=== PATIENT | male | born 1955 | race Hispanic/Latino ===

== ENCOUNTER 2017-11-09 06:50 | Inpatient (IN) | payer MEDICAID ==
[~2017-11-09] VITALS: Ht 180.3 cm; Wt 132.4 kg
[~2017-11-09 06:50] MED LIST: ASPI-1181 PO; ATOR20TA65 PO; CILO100T PO; CLON0.1T PO; CLOP75TA32 PO; IRON-23 PO; LEVO5TAB13 PO; OMEP20CA10 PO; PREG150C PO; SAXA1TBM2 PO; SERT50TA12 PO; TAMS0.4C32 PO
[2017-11-09 08:18] LABS: BASOPHILS % (AUTO) 0.9 % (0.0-5.0); EOSINOPHILS % (AUTO) 3.2 % (0.0-8.0); HEMATOCRIT 37.8 % (42-54); LYMPHOCYTES % (AUTO) 6.9 % (21.0-51.0); MEAN CORPUSCULAR HEMOGLOBIN 29.5 pg (27.0-33.0); MEAN CORPUSCULAR HGB CONC 32.9 g/dL (32.0-36.0); MEAN CORPUSCULAR VOLUME 89.7 fL (79-99); MONOCYTES % (AUTO) 5.3 % (3.0-13.0); NEUTROPHILS % (AUTO) 83.7 % (40.0-77.0); PLATELET COUNT (AUTO) 319 K/uL (130-400); RED BLOOD CELL COUNT(AUTO) 4.22 MIL/uL (4.50-6.20); RED CELL DISTRIBUTION WIDTH 16.7 % (11.0-15.5); WHITE BLOOD COUNT (AUTO) 8.1 K/uL (4.8-10.8)
[2017-11-09] MEDS ORDERED: VANCOMYCIN 1GM+NS 250ML 250 ML IV ONE (08:28)
[2017-11-09 08:30] LABS: CREATININE 2.5 mg/dL (0.5-1.5); POTASSIUM 4.6 mmol/L (3.5-5.1)
[2017-11-09 08:36] LABS: ALBUMIN 2.8 g/dL (3.5-5.0); BILIRUBIN,TOTAL 0.6 mg/dL (0.2-1.0); TOTAL PROTEIN, SERUM 8.3 g/dL (6.0-8.3)
[2017-11-09 08:45] LABS: INR 1.1 (0.85-1.15); PARTIAL THROMBOPLASTIN TIME 30.8 SEC (26.3-35.5); PROTHROMBIN TIME 11.5 SEC (9.6-11.6)
[2017-11-09 09:34] LABS: ERYTHROCYTE SEDIMENTATION RATE 77 MM/HR (0-15)
[2017-11-09] MEDS ORDERED: GUAIFENESIN-DM 200/20 MG 10 ML PO PRN (09:45)
[2017-11-09] MEDS ORDERED: ONDANSETRON HCL 4 MG/2 ML VIAL IV PRN (09:45)
[2017-11-09] MEDS ORDERED: ACETAMINOPHEN-CODEINE 300/30MG TAB PO PRN ×2 (09:45)
[2017-11-09] MEDS ORDERED: MAG HYDROX/AL HYDROX/SIMETH ES 30 ML SUSP UDCUP PO PRN (09:45)
[2017-11-09] MEDS ORDERED: CLINDAMYCIN 600 MG/D5% WATER 50 ML IV SCH (09:45)
[2017-11-09] MEDS ORDERED: NITROGLYCERIN 0.4 MG SL TAB SL PRN (09:45)
[2017-11-09] MEDS ORDERED: CEFTRIAXONE 1GM/D5W 50ML 50 ML IV SCH (09:45)
[2017-11-09] MEDS ORDERED: MORPHINE SULFATE 2 MG/ML 1ML SYG IV PRN (09:45)
[2017-11-09] MEDS ORDERED: HYDRALAZINE HCL 20 MG/ML VIAL IV PRN (09:45)
[2017-11-09] MEDS ORDERED: LACTULOSE 20 GM/30 ML UDCUP PO PRN (09:45)
[2017-11-09] MEDS ORDERED: ACETAMINOPHEN 325 MG TAB PO PRN ×2 (09:45)
[2017-11-09 10:31] LABS: APPEARANCE,URINE CLEAR (CLEAR); BILIRUBIN,URINE NEGATIVE (NEGATIVE); COLOR,URINE YELLOW (YELLOW); GLUCOSE, URINE (UA) NEGATIVE (NEGATIVE); KETONES,URINE NEGATIVE (NEGATIVE); LEUKOCYTE ESTERASE ,URINE SMALL (NEGATIVE); NITRATE,URINE NEGATIVE (NEGATIVE); OCCULT BLOOD,URINE SMALL (NEGATIVE); PH,URINE 5.5 (5.0-8.0); PROTEIN,URINE 100 (NEGATIVE); UROBILINOGEN,URINE 0.2 mg/dL (0.2-1.0)
[2017-11-09 10:37] LABS: BACTERIA,URINE Few /HPF (None Seen)
[2017-11-09 10:38] LABS: RBC,URINE 0-1 /HPF (0-1); SQUAMOUS EPITHELIAL CELL,UR 0-2 /LPF (0-2); YEAST,URINE BUDDING Many /HPF (None Seen)
[2017-11-09 12:59] VITALS: BP 142/71
[2017-11-09] MEDS ORDERED: SODIUM CHLORIDE 0.9% 1000ML 1,000 ML IV SCH (14:43)
[2017-11-09 16:00] VITALS: BP 146/75
[2017-11-09] MEDS: INSULIN HUMULIN R 100 UNIT/ML 3ML SQ SCH ×2 (16:30→21:00)
[2017-11-09] MEDS: MORPHINE SULFATE 4 MG/1ML SYG IV PRN (16:41)
[2017-11-09] MEDS: CEFTRIAXONE SODIUM 1 GM IVP SCH (16:41)
[2017-11-09 20:00] VITALS: BP 124/74
[2017-11-09] MEDS: FAMOTIDINE/PF 20 MG/2 ML VIAL IV SCH (23:06)
[2017-11-09] MEDS: NYSTATIN 30 GM CREAM.GM. TP SCH (23:06)
[2017-11-09] MEDS: ATORVASTATIN CALCIUM 20 MG TABLET PO SCH (23:06)
[2017-11-09] MEDS: INSULIN GLARGINE 100 UNITS/ML 10 ML VIAL SQ SCH (23:11)
[2017-11-10] VITALS: BP 145/68
[2017-11-10] MEDS: ACETYLCYSTEINE 10% 100MG/ML 4ML VIAL PO SCH ×2 (02:45→20:46)
[2017-11-10 03:36] LABS: HEMATOCRIT 33.4 % (42-54); MEAN CORPUSCULAR HGB CONC 32.7 g/dL (32.0-36.0); MEAN CORPUSCULAR VOLUME 88.5 fL (79-99); PLATELET COUNT (AUTO) 258 K/uL (130-400); RED BLOOD CELL COUNT(AUTO) 3.77 MIL/uL (4.50-6.20); RED CELL DISTRIBUTION WIDTH 16.3 % (11.0-15.5); WHITE BLOOD COUNT (AUTO) 6.1 K/uL (4.8-10.8)
[2017-11-10 03:52] LABS: CREATININE 2.2 mg/dL (0.5-1.5); POTASSIUM 4.7 mmol/L (3.5-5.1)
[2017-11-10 04:00] VITALS: BP 117/61
[2017-11-10] MEDS ORDERED: ATOR20TA PO (04:52)
[2017-11-10] MEDS ORDERED: OMEP40CA37 PO (04:52)
[2017-11-10] MEDS ORDERED: LOSA25TA21 PO (04:52)
[2017-11-10] MEDS ORDERED: PREG150C PO (04:52)
[2017-11-10 07:00] VITALS: BP 128/64
[2017-11-10] MEDS: INSULIN HUMULIN R 100 UNIT/ML 3ML SQ SCH ×4 (07:30→20:53)
[2017-11-10] MEDS: MORPHINE SULFATE 4 MG/1ML SYG IV PRN (08:05)
[2017-11-10] MEDS: CLOPIDOGREL BISULFATE 75 MG TAB PO SCH (09:00)
[2017-11-10] MEDS: ENOXAPARIN SODIUM 40 MG/0.4 ML SYRINGE SQ SCH (09:00)
[2017-11-10] MEDS: FAMOTIDINE/PF 20 MG/2 ML VIAL IV SCH ×2 (09:00→20:48)
[2017-11-10] MEDS: CILOSTAZOL 100 MG TAB PO SCH ×2 (09:00→20:47)
[2017-11-10] MEDS: CLONIDINE HCL 0.1 MG TABLET PO SCH ×2 (09:00→20:47)
[2017-11-10] MEDS: ASPIRIN 81 MG EC TAB PO SCH (09:00)
[2017-11-10] MEDS: TAMSULOSIN HCL 0.4 MG CAP.ER.24H PO SCH ×2 (09:00→20:48)
[2017-11-10] MEDS: FE FUMARATE/FA/MV, MIN COMB#15 1 TAB PO SCH (09:11)
[2017-11-10] MEDS: CEFTRIAXONE SODIUM 1 GM IVP SCH (10:47)
[2017-11-10 11:00] VITALS: BP 133/70
[2017-11-10] MEDS ORDERED: DEXTROSE 50%-WATER 50 ML DISP.SYRIN IV ONE (11:27)
[2017-11-10] MEDS: NYSTATIN 30 GM CREAM.GM. TP SCH ×2 (11:33→20:53)
[2017-11-10 16:00] VITALS: BP 121/74
[2017-11-10] MEDS ORDERED: LIDOCAINE HCL 2% 20ML ONE (17:05)
[2017-11-10] MEDS ORDERED: SODIUM BICARB 50MEQ 50ML VIAL ONE (17:05)
[2017-11-10] MEDS ORDERED: HEPARIN SODIUM 1000UNIT/ML 10ML VIAL ONE (17:05)
[2017-11-10] MEDS ORDERED: ISOVUE-300 100 ML VIAL IV ONE (17:05)
[2017-11-10] MEDS ORDERED: NITROGLYCERIN 5 MG/ML 10 ML VIAL IV ONE (17:05)
[2017-11-10] MEDS ORDERED: MEPERIDINE-PF 50 MG/ML SYG ONE (17:23)
[2017-11-10] MEDS ORDERED: MIDAZOLAM HCL 1 MG/ML 2ML VIAL ONE ×2 (17:23→17:37)
[2017-11-10] MEDS ORDERED: FENTANYL CITRATE PF 50 MCG/1 ML 2ML VIAL ONE (17:39)
[2017-11-10 20:00] VITALS: BP 130/61
[2017-11-10] MEDS: ATORVASTATIN CALCIUM 20 MG TABLET PO SCH (20:47)
[2017-11-10] MEDS: PREGABALIN 75 MG CAPSULE PO SCH (20:47)
[2017-11-10] MEDS: SERTRALINE HCL 50 MG TABLET PO SCH (20:48)
[2017-11-10] MEDS: ATORVASTATIN CALCIUM 10 MG TABLET PO SCH ×2 (20:48→21:00)
[2017-11-10] MEDS: INSULIN GLARGINE 100 UNITS/ML 10 ML VIAL SQ SCH (20:51)
[2017-11-11] VITALS (7 sets, daily range): BP systolic 103–124; BP diastolic 61–68
[2017-11-11] MEDS: ACETYLCYSTEINE 10% 100MG/ML 4ML VIAL PO SCH (02:31)
[2017-11-11 04:24] LABS: BASOPHILS % (AUTO) 1.4 % (0.0-5.0); EOSINOPHILS % (AUTO) 4.3 % (0.0-8.0); HEMATOCRIT 33.6 % (42-54); LYMPHOCYTES % (AUTO) 11.5 % (21.0-51.0); MEAN CORPUSCULAR HEMOGLOBIN 29.8 pg (27.0-33.0); MEAN CORPUSCULAR HGB CONC 33.5 g/dL (32.0-36.0); MONOCYTES % (AUTO) 7.4 % (3.0-13.0); NEUTROPHILS % (AUTO) 75.4 % (40.0-77.0); PLATELET COUNT (AUTO) 237 K/uL (130-400); RED BLOOD CELL COUNT(AUTO) 3.78 MIL/uL (4.50-6.20); RED CELL DISTRIBUTION WIDTH 16.3 % (11.0-15.5); WHITE BLOOD COUNT (AUTO) 5.9 K/uL (4.8-10.8)
[2017-11-11 04:35] LABS: CREATININE 1.8 mg/dL (0.5-1.5); POTASSIUM 4.8 mmol/L (3.5-5.1)
[2017-11-11] MEDS: INSULIN HUMULIN R 100 UNIT/ML 3ML SQ SCH ×4 (06:03→21:07)
[2017-11-11] MEDS ORDERED: PHARMACY COMMUNICATION MISC SCH (08:00)
[2017-11-11] MEDS: NYSTATIN 30 GM CREAM.GM. TP SCH ×2 (09:00→21:12)
[2017-11-11] MEDS: CEFTRIAXONE SODIUM 1 GM IVP SCH (09:59)
[2017-11-11] MEDS: TAMSULOSIN HCL 0.4 MG CAP.ER.24H PO SCH ×2 (10:00→21:11)
[2017-11-11] MEDS: CLONIDINE HCL 0.1 MG TABLET PO SCH ×2 (10:00→21:11)
[2017-11-11] MEDS: CILOSTAZOL 100 MG TAB PO SCH ×2 (10:00→21:10)
[2017-11-11] MEDS: ASPIRIN 81 MG EC TAB PO SCH (10:01)
[2017-11-11] MEDS: FE FUMARATE/FA/MV, MIN COMB#15 1 TAB PO SCH (10:01)
[2017-11-11] MEDS: FAMOTIDINE/PF 20 MG/2 ML VIAL IV SCH ×2 (10:01→21:11)
[2017-11-11] MEDS: CLOPIDOGREL BISULFATE 75 MG TAB PO SCH (10:01)
[2017-11-11] MEDS: SODIUM CHLORIDE 0.9% 1000ML 1,000 ML IV SCH (10:01)
[2017-11-11] MEDS: ENOXAPARIN SODIUM 40 MG/0.4 ML SYRINGE SQ SCH (10:03)
[2017-11-11] MEDS: ATORVASTATIN CALCIUM 10 MG TABLET PO SCH (21:00)
[2017-11-11] MEDS: INSULIN GLARGINE 100 UNITS/ML 10 ML VIAL SQ SCH (21:06)
[2017-11-11] MEDS: ATORVASTATIN CALCIUM 20 MG TABLET PO SCH (21:10)
[2017-11-11] MEDS: PREGABALIN 75 MG CAPSULE PO SCH (21:10)
[2017-11-11] MEDS: SERTRALINE HCL 50 MG TABLET PO SCH (21:11)
[2017-11-12] MEDS: SODIUM CHLORIDE 0.9% 1000ML 1,000 ML IV SCH (02:36)
[2017-11-12 04:00] VITALS: BP 110/66
[2017-11-12 04:24] LABS: HEMATOCRIT 33.6 % (42-54); MEAN CORPUSCULAR HEMOGLOBIN 29.2 pg (27.0-33.0); MEAN CORPUSCULAR HGB CONC 32.8 g/dL (32.0-36.0); MEAN CORPUSCULAR VOLUME 89.1 fL (79-99); PLATELET COUNT (AUTO) 237 K/uL (130-400); RED BLOOD CELL COUNT(AUTO) 3.77 MIL/uL (4.50-6.20); RED CELL DISTRIBUTION WIDTH 16.3 % (11.0-15.5)
[2017-11-12 04:29] LABS: CREATININE 1.7 mg/dL (0.5-1.5); POTASSIUM 4.7 mmol/L (3.5-5.1)
[2017-11-12] MEDS: INSULIN HUMULIN R 100 UNIT/ML 3ML SQ SCH ×4 (06:17→21:06)
[2017-11-12 07:31] VITALS: BP 115/68
[2017-11-12] MEDS: FE FUMARATE/FA/MV, MIN COMB#15 1 TAB PO SCH (09:11)
[2017-11-12] MEDS: CILOSTAZOL 100 MG TAB PO SCH ×2 (09:11→21:07)
[2017-11-12] MEDS: CLOPIDOGREL BISULFATE 75 MG TAB PO SCH (09:11)
[2017-11-12] MEDS: CLONIDINE HCL 0.1 MG TABLET PO SCH ×2 (09:11→21:08)
[2017-11-12] MEDS: TAMSULOSIN HCL 0.4 MG CAP.ER.24H PO SCH ×2 (09:11→21:07)
[2017-11-12] MEDS: CEFTRIAXONE SODIUM 1 GM IVP SCH (09:11)
[2017-11-12] MEDS: ENOXAPARIN SODIUM 40 MG/0.4 ML SYRINGE SQ SCH (09:11)
[2017-11-12] MEDS: ASPIRIN 81 MG EC TAB PO SCH (09:11)
[2017-11-12] MEDS: FAMOTIDINE/PF 20 MG/2 ML VIAL IV SCH ×2 (09:12→21:08)
[2017-11-12] MEDS: NYSTATIN 30 GM CREAM.GM. TP SCH ×2 (09:12→21:00)
[2017-11-12 11:15] VITALS: BP 121/67
[2017-11-12 15:49] VITALS: BP 120/71
[2017-11-12 19:44] VITALS: BP 120/79
[2017-11-12] MEDS: ATORVASTATIN CALCIUM 10 MG TABLET PO SCH (21:00)
[2017-11-12] MEDS: SERTRALINE HCL 50 MG TABLET PO SCH (21:07)
[2017-11-12] MEDS: INSULIN GLARGINE 100 UNITS/ML 10 ML VIAL SQ SCH (21:07)
[2017-11-12] MEDS: PREGABALIN 75 MG CAPSULE PO SCH (21:08)
[2017-11-12] MEDS: ATORVASTATIN CALCIUM 20 MG TABLET PO SCH (21:10)
[2017-11-13 00:22] VITALS: BP 153/87
[2017-11-13 04:18] LABS: HEMATOCRIT 33.4 % (42-54); MEAN CORPUSCULAR HGB CONC 32.8 g/dL (32.0-36.0); MEAN CORPUSCULAR VOLUME 88.6 fL (79-99); PLATELET COUNT (AUTO) 215 K/uL (130-400); RED BLOOD CELL COUNT(AUTO) 3.77 MIL/uL (4.50-6.20); RED CELL DISTRIBUTION WIDTH 16.2 % (11.0-15.5); WHITE BLOOD COUNT (AUTO) 5.3 K/uL (4.8-10.8)
[2017-11-13 04:30] LABS: CREATININE 1.6 mg/dL (0.5-1.5); POTASSIUM 4.7 mmol/L (3.5-5.1)
[2017-11-13 05:03] VITALS: BP 137/77
[2017-11-13 05:20] LABS: B-TYPE NATRIURETIC PEPTIDE 738 pg/mL (0-100)
[2017-11-13] MEDS: INSULIN HUMULIN R 100 UNIT/ML 3ML SQ SCH ×4 (06:44→21:58)
[2017-11-13 07:13] VITALS: BP 100/51
[2017-11-13] MEDS: NYSTATIN 30 GM CREAM.GM. TP SCH ×2 (09:00→20:56)
[2017-11-13] MEDS: CLONIDINE HCL 0.1 MG TABLET PO SCH ×2 (09:00→20:54)
[2017-11-13] MEDS: CILOSTAZOL 100 MG TAB PO SCH ×2 (10:14→20:54)
[2017-11-13] MEDS: TAMSULOSIN HCL 0.4 MG CAP.ER.24H PO SCH ×2 (10:14→20:55)
[2017-11-13] MEDS: FAMOTIDINE/PF 20 MG/2 ML VIAL IV SCH ×2 (10:15→20:53)
[2017-11-13] MEDS: FE FUMARATE/FA/MV, MIN COMB#15 1 TAB PO SCH (10:15)
[2017-11-13] MEDS: ENOXAPARIN SODIUM 40 MG/0.4 ML SYRINGE SQ SCH (10:17)
[2017-11-13] MEDS: CEFTRIAXONE SODIUM 1 GM IVP SCH (10:17)
[2017-11-13] MEDS: ASPIRIN 81 MG EC TAB PO SCH (10:17)
[2017-11-13] MEDS: CLOPIDOGREL BISULFATE 75 MG TAB PO SCH (10:52)
[2017-11-13 11:00] VITALS: BP 132/71
[2017-11-13] MEDS: HONEY 1 APPL/ML TUBE TP SCH (13:00)
[2017-11-13 16:10] VITALS: BP 150/78
[2017-11-13 19:51] VITALS: BP 142/80
[2017-11-13] MEDS: ATORVASTATIN CALCIUM 20 MG TABLET PO SCH (20:54)
[2017-11-13] MEDS: SERTRALINE HCL 50 MG TABLET PO SCH (20:55)
[2017-11-13] MEDS: PREGABALIN 75 MG CAPSULE PO SCH (20:55)
[2017-11-13] MEDS: ATORVASTATIN CALCIUM 10 MG TABLET PO SCH (20:55)
[2017-11-13] MEDS: INSULIN GLARGINE 100 UNITS/ML 10 ML VIAL SQ SCH (21:56)
[2017-11-14] VITALS (7 sets, daily range): BP systolic 84–138; BP diastolic 50–85
[2017-11-14 04:32] LABS: HEMATOCRIT 34.4 % (42-54); MEAN CORPUSCULAR HEMOGLOBIN 30.2 pg (27.0-33.0); MEAN CORPUSCULAR HGB CONC 33.8 g/dL (32.0-36.0); MEAN CORPUSCULAR VOLUME 89.4 fL (79-99); PLATELET COUNT (AUTO) 191 K/uL (130-400); RED BLOOD CELL COUNT(AUTO) 3.85 MIL/uL (4.50-6.20); RED CELL DISTRIBUTION WIDTH 16.5 % (11.0-15.5); WHITE BLOOD COUNT (AUTO) 5.2 K/uL (4.8-10.8)
[2017-11-14 04:39] LABS: CREATININE 1.6 mg/dL (0.5-1.5); POTASSIUM 4.5 mmol/L (3.5-5.1)
[2017-11-14] MEDS: INSULIN HUMULIN R 100 UNIT/ML 3ML SQ SCH ×4 (06:34→21:00)
[2017-11-14] MEDS: NYSTATIN 30 GM CREAM.GM. TP SCH ×2 (09:00→21:00)
[2017-11-14] MEDS: CLONIDINE HCL 0.1 MG TABLET PO SCH ×3 (09:00→22:06)
[2017-11-14] MEDS: CILOSTAZOL 100 MG TAB PO SCH ×2 (09:01→22:03)
[2017-11-14] MEDS: CLOPIDOGREL BISULFATE 75 MG TAB PO SCH (09:01)
[2017-11-14] MEDS: ASPIRIN 81 MG EC TAB PO SCH (09:01)
[2017-11-14] MEDS: TAMSULOSIN HCL 0.4 MG CAP.ER.24H PO SCH ×2 (09:01→22:04)
[2017-11-14] MEDS: FE FUMARATE/FA/MV, MIN COMB#15 1 TAB PO SCH (09:01)
[2017-11-14] MEDS: FAMOTIDINE/PF 20 MG/2 ML VIAL IV SCH ×2 (09:02→22:06)
[2017-11-14] MEDS: HONEY 1 APPL/ML TUBE TP SCH (09:04)
[2017-11-14] MEDS: ENOXAPARIN SODIUM 40 MG/0.4 ML SYRINGE SQ SCH (09:09)
[2017-11-14] MEDS: CEFTRIAXONE SODIUM 1 GM IVP SCH (09:09)
[2017-11-14] MEDS ORDERED: INSULIN GLARGINE 100 UNITS/ML 10 ML VIAL SQ SCH (21:00)
[2017-11-14] MEDS: ATORVASTATIN CALCIUM 10 MG TABLET PO SCH (21:00)
[2017-11-14] MEDS: PREGABALIN 75 MG CAPSULE PO SCH (22:04)
[2017-11-14] MEDS: SERTRALINE HCL 50 MG TABLET PO SCH (22:04)
[2017-11-14] MEDS: ATORVASTATIN CALCIUM 20 MG TABLET PO SCH (22:04)
[2017-11-15 03:50] VITALS: BP 111/62
[2017-11-15 04:36] LABS: HEMATOCRIT 34.9 % (42-54); MEAN CORPUSCULAR HEMOGLOBIN 29.2 pg (27.0-33.0); MEAN CORPUSCULAR HGB CONC 32.6 g/dL (32.0-36.0); MEAN CORPUSCULAR VOLUME 89.5 fL (79-99); PLATELET COUNT (AUTO) 205 K/uL (130-400); RED CELL DISTRIBUTION WIDTH 16.2 % (11.0-15.5)
[2017-11-15 04:42] LABS: CREATININE 1.8 mg/dL (0.5-1.5)
[2017-11-15 04:43] LABS: INR 1.11 (0.85-1.15); PARTIAL THROMBOPLASTIN TIME 29.8 SEC (26.3-35.5); PROTHROMBIN TIME 11.6 SEC (9.6-11.6)
[2017-11-15 05:32] LABS: B-TYPE NATRIURETIC PEPTIDE 516 pg/mL (0-100)
[2017-11-15] MEDS: INSULIN HUMULIN R 100 UNIT/ML 3ML SQ SCH ×3 (06:27→16:20)
[2017-11-15 07:40] VITALS: BP 98/53
[2017-11-15] MEDS: FAMOTIDINE/PF 20 MG/2 ML VIAL IV SCH (09:00)
[2017-11-15] MEDS: ASPIRIN 81 MG EC TAB PO SCH (09:00)
[2017-11-15] MEDS: FE FUMARATE/FA/MV, MIN COMB#15 1 TAB PO SCH (09:00)
[2017-11-15] MEDS: CLONIDINE HCL 0.1 MG TABLET PO SCH (09:00)
[2017-11-15] MEDS: CILOSTAZOL 100 MG TAB PO SCH (09:00)
[2017-11-15] MEDS: CLOPIDOGREL BISULFATE 75 MG TAB PO SCH (09:00)
[2017-11-15] MEDS: ENOXAPARIN SODIUM 40 MG/0.4 ML SYRINGE SQ SCH (09:00)
[2017-11-15] MEDS: NYSTATIN 30 GM CREAM.GM. TP SCH (09:00)
[2017-11-15] MEDS: TAMSULOSIN HCL 0.4 MG CAP.ER.24H PO SCH (09:00)
[2017-11-15] MEDS: CEFTRIAXONE SODIUM 1 GM IVP SCH (10:00)
[2017-11-15] MEDS ORDERED: SODIUM BICARB 50MEQ 50ML VIAL ONE (10:23)
[2017-11-15] MEDS ORDERED: LIDOCAINE HCL 2% 20ML ONE (10:24)
[2017-11-15] MEDS ORDERED: NITROGLYCERIN 5 MG/ML 10 ML VIAL IV ONE (10:24)
[2017-11-15] MEDS ORDERED: HEPARIN SODIUM 1000UNIT/ML 10ML VIAL ONE (10:24)
[2017-11-15] MEDS ORDERED: ISOVUE-300 100 ML VIAL IV ONE (10:24)
[2017-11-15] MEDS ORDERED: SODIUM CHLORIDE 0.9% 1000ML 1,000 ML IV ONE (10:26)
[2017-11-15] MEDS ORDERED: KETAMINE HCL 100 MG/ML 5ML VIAL IJ ONE (12:36)
[2017-11-15] MEDS ORDERED: MIDAZOLAM HCL 1 MG/ML 2ML VIAL ONE (12:49)
[2017-11-15] MEDS ORDERED: FENTANYL CITRATE PF 50 MCG/1 ML 2ML VIAL ONE (12:50)
[2017-11-15 13:50] VITALS: BP 156/87
[2017-11-15 16:20] VITALS: BP 129/63
[2017-11-15] MEDS: HONEY 1 APPL/ML TUBE TP SCH (18:17)
== END 2017-11-15 18:35 | disposition left against medical advice (07) | DRG 197 ==
LOC: EDH 06:50 → EDHIP 06:51 → 3CH 12:29 → 2DH 11-10 18:27
PROVIDERS: ADMIT Internal Medicine; ATTEND Internal Medicine
DX: E11.51 Type 2 diabetes mellitus with diabetic peripheral angiopathy without gangrene (principal); I13.2 Hypertensive heart and chronic kidney disease with heart failure and with stage 5 chronic kidney disease, or end stage renal disease; E11.22 Type 2 diabetes mellitus with diabetic chronic kidney disease; E11.621 Type 2 diabetes mellitus with foot ulcer; I44.1 Atrioventricular block, second degree; E11.649 Type 2 diabetes mellitus with hypoglycemia without coma; I73.9 Peripheral vascular disease, unspecified; E66.01 Morbid (severe) obesity due to excess calories; L97.529 Non-pressure chronic ulcer of other part of left foot with unspecified severity; I25.10 Atherosclerotic heart disease of native coronary artery without angina pectoris; Z95.1 Presence of aortocoronary bypass graft; E78.5 Hyperlipidemia, unspecified; N40.0 Benign prostatic hyperplasia without lower urinary tract symptoms; F32.9 Major depressive disorder, single episode, unspecified; D64.9 Anemia, unspecified; N39.0 Urinary tract infection, site not specified; I48.91 Unspecified atrial fibrillation; I87.8 Other specified disorders of veins; G89.29 Other chronic pain; I44.5 Left posterior fascicular block; L97.929 Non-pressure chronic ulcer of unspecified part of left lower leg with unspecified severity; M19.90 Unspecified osteoarthritis, unspecified site; M54.17 Radiculopathy, lumbosacral region; M54.9 Dorsalgia, unspecified; N18.5 Chronic kidney disease, stage 5; I25.5 Ischemic cardiomyopathy; I45.2 Bifascicular block; I50.42 Chronic combined systolic (congestive) and diastolic (congestive) heart failure; Z95.0 Presence of cardiac pacemaker; I25.2 Old myocardial infarction; Z72.0 Tobacco use; Z79.02 Long term (current) use of antithrombotics/antiplatelets; Z83.3 Family history of diabetes mellitus; Z68.41 Body mass index [BMI] 40.0-44.9, adult
CPT/HCPCS: 36415; 71045; 73630; 80048; 80053; 81001; 82550; 82948; 83880; 84484; 85025; 85027; 85610; 85651; 85730; 87040; 93005; 93306; 93970; 99291; A4218; C1769; C1894; J0696; J1644; J1650; J1815; J2175; J2250; J2270; J3010; J3370; J3490; J7030; J7070; J7608; Q9967